=== PATIENT | male | born 1975 | race Caucasian/White ===

== ENCOUNTER 2020-10-25 18:15 | Emergency (ER) | payer SELFPAY ==
[~2020-10-25] VITALS: Ht 182.9 cm; Wt 138.3 kg
--- NOTE | 2020-10-25 18:15 | NUR ---
Patient BIB [facility] for pre-booking medical screening exam, transferred to chair C. RN evaluating the patient.
[2020-10-25 18:25] VITALS: BP 137/90
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
[2020-10-25 18:34] VITALS: BP 137/90
--- NOTE | 2020-10-25 18:34 | NUR ---
Dr. Stephens is evaluating the patient at bedside.
--- NOTE | 2020-10-25 18:45 | NUR ---
Note monique in EDM - 10/25/20 at 1846 by [facility] Patient discharged with v/s stable. Written and verbal after care instructions given and explained. Patient verbalized understanding. Ambulatory with steady gait. All questions addressed prior to discharge. Advised to follow up with PMD.
--- NOTE | 2020-10-25 18:45 | NUR ---
PATIENT BIB [facility] POLICE DEPT. PATIENT EXAMINED BY DR. DAY. PATIENT MEDICALLY CLEARED AND RELEASED IN CUSTODY IN STABLE CONDITION. ORIGINAL PRE-BOOK FORM GIVEN TO OFFICER. DISCHARGE INSTRUCTIONS GIVEN TO OFFICER. PT RELEASED INTO [facility] OF [facility]. PT OKAY TO BOOK AND CLEARED FOR [facility]
== END 2020-10-25 18:45 ==
LOC: MED 18:15
DX: I10 Essential (primary) hypertension (principal); Z02.89 Encounter for other administrative examinations; V98.8XXA Other specified transport accidents, initial encounter; Y93.89 Activity, other specified; Y92.89 Other specified places as the place of occurrence of the external cause; Y99.8 Other external cause status
CPT/HCPCS: 99283